=== PATIENT | male | born 1995 | race Caucasian/White ===

== ENCOUNTER 2019-10-18 13:30 | Emergency (ER) | payer MEDICAID, SELFPAY ==
[2019-10-18 13:48] VITALS: BP 175/104; PULSE 112; RESP 20; TEMP 36.8; O2SAT 98; BMI 44.9
--- NOTE | 2019-10-18 13:50 | XR_ITS ---
PROCEDURE: XR FOOT RT MIN 3V CLINICAL INDICATION: pain Right foot pain. No known injury. COMPARISON: No exams were available for comparison FINDINGS: No fracture or dislocation. No lytic or blastic change. There is normal mineralization. There is a hallux valgus with mild/moderate osteoarthrosis of the 1st MTP articulation.. No erosive changes evident. 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 Other findings:Diffuse marked possible inflammatory soft tissue edema with swelling of the right foot. IMPRESSION: 1. Negative for fracture, bony destruction or dislocation. 2. Diffuse possible inflammatory soft tissue edema/swelling of the right foot. 3. Hallux valgus with mild/moderate 1st MTP osteoarthrosis. 4. 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 Dictated by: Reese Rouse 10/18/2019 15:03 Electronically signed by Reese Rouse in [place] 10/18/2019 15:03
--- NOTE | 2019-10-18 13:50 | XR_ITS ---
PROCEDURE: XR ANKLE RT MIN 3V CLINICAL INDICATION: pain Right ankle pain. No known recent injury. Patient wearing an ankle brace. COMPARISON: No exams were available for comparison FINDINGS: The visualized distal right tibia and fibula appears intact. There is demineralization of the distal portion of the fibula. Ankle mortise is anatomic. The talar dome and calcaneus is intact. 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 There is marked soft tissue edema with swelling of the ankle seen more prominently over the lateral malleolus. IMPRESSION: 1. Negative for acute fracture or dislocation. 2. Marked soft tissue edema/swelling of the right ankle seen more prominently over the lateral malleolus. 3. Talocalcaneal coalition. Dictated by: Reese Rouse 10/18/2019 14:58 Electronically signed by Reese Rouse in [place] 10/18/2019 14:58
--- NOTE | 2019-10-18 13:59 | HMH.EDUTC ---
[facility] [place] Disposition Clinical Impression: Ankle pain, right Qualifiers: Chronicity: unspecified Qualified Code(s): M25.571 - Pain in right ankle and joints of right foot Disposition: Home, Self-Care Condition on Discharge: Good Instructions: How To Perform RICE (Rest, Ice, Compress, Elevate), How to Apply an Ronn Wrap Additional Instructions: Continue to wear ankle brace and ronn wrap for support Follow up with Dr Cummings or Edie Durand in Podiatry Clinic for further evaluation and treatment Return if needed Over the counter Motrin and/or Tylenol as directed on package for pain Return if needed Straight to ER if any life threatening symptoms Call back to the [facility] for official reading of your xray Referrals: Emmett Davenport MD [Primary Care Provider] - Nury Cummings DPM [Staff Physician] - Edie Durand APRN [Nurse Practitioner] - Time of Disposition: 14:28 Medical Decision Making - Roger Inquiry Pt receiving controlled substance: No Roger was queried for this patient: No Vital Signs: 10/18/19 13:48 10/18/19 14:34 Temperature 98.3 F 98.3 F Temperature Source Oral Pulse Rate 112 H Pulse Rate [Right Brachial] 112 H Respiratory Rate 20 20 Blood Pressure 175/104 H Blood Pressure [Right Arm] 175/104 H Blood Pressure Mean [Right Arm] 127 Blood Pressure Source [Right Arm] Automatic Cuff Blood Pressure Position [Right Arm] Sitting 02 Sat by Pulse Oximetry 98 Oxygen Delivery Method Room Air Orders (Tests/Meds): ORDERS Category Date Time Status XR ankle RT min 3V Stat Exams 10/18/19 13:50 Taken XR foot RT min 3V Stat Exams 10/18/19 13:50 Taken - Radiology Data #1 Image(s): Ankle Image Reviewed: Yes I reviewed the patient's radiology image No acute fracture noted, patient in ankle brace and will have patient follow up with Dr Cummings for further evaluation #2 Image(s): Foot/Toes Image Reviewed: Yes I reviewed the patient's radiology image Preliminary Findings: No Fracture Seen No acute fracture noted, will place ronn wrap and have patient follow up with Dr Alejandro office for further evaluation [facility] [place] HPI - General Stated complaint: ankles Time Seen by Provider: 10/18/19 14:00 Mode of Arrival: Ambulatory Source of Information: Patient Limitations: No Limitations Description of Symptoms (Recalled from Triage Doc. by RN): PATIENT C/O PAIN TO RIGHT ANKLE X APPROX 1 MONTH HEENT Symptoms (Recalled from RN notes): No Resp Symptoms (Recalled from RN notes): No Skin Symptoms (Recalled from RN notes): No MS Symptoms (Recalled from RN notes): Yes Functional Status (Recalled from RN notes): WNL - History of Present Illness Provider Complaint: Patient state that he has been having pain in his right ankle area and the side of his foot for about a month States that he was recently moved to day shift and has been doing more walking and not sure if that is what is causing his foot to hurt or not States that pain shoots from the top of his foot around the outside and worse at times when he walks - Related Data Home Medications Medication Instructions Recorded Confirmed No Known Home Medications 10/18/19 10/18/19 Allergies Allergy/AdvReac Type Severity Reaction Status Date / Time No Known Allergies Allergy Verified 10/18/19 13:56 - Worker's Comp Is this a Worker's Comp case?: No [facility] History - Hepatitis A Screen Drug use history?: No High risk sexual behaviors?: No History of sexually transmitted infection?: No Currently employed?: No Childcare worker?: No Do you have indoor plumbing?: Yes Do you have electricity?: Yes Attestation statement:: This patient has been screened for Hepatitis A risk factors. I have reviewed the patient's past medical history: Yes Laterality Cases: Bilateral: Tonsillectomy - Social History Alcohol Intake: never Occupational Status: other Housing: house ROS Obtained: Yes All systems reviewed & no additional complaints, Yes System
[2019-10-18 14:34] VITALS: BP 175/104; PULSE 112; RESP 20; TEMP 36.8; O2SAT 98
== END 2019-10-18 14:35 | disposition home or self-care (01) ==
PROVIDERS: Emergency Provider Nurse Practitioner; PCP Family Medicine
DX: M25.571 Pain in right ankle and joints of right foot (principal); Z90.09 Acquired absence of other part of head and neck
CPT/HCPCS: 73610; 73630; 99201

== ENCOUNTER 2023-02-27 23:10 | Emergency (ER) | payer OTHER, SELFPAY ==
[2023-02-27 23:12] VITALS: BP 170/105; PULSE 110; RESP 20; TEMP 37.8; O2SAT 78; BMI 47.4
[2023-02-27 23:30] VITALS: BP 135/95; PULSE 112; RESP 17; O2SAT 93
--- NOTE | 2023-02-27 23:33 | XR_ITS ---
PROCEDURE INFORMATION: Exam: XR Chest Exam date and time: 02/27/2023 11:34 PM Age: 28 years old Clinical indication: Shortness of breath; Additional info: SOA TECHNIQUE: Imaging protocol: Radiologic exam of the chest. Views: 1 view. COMPARISON: No relevant prior studies available. FINDINGS: Limitations: Evaluation is limited by lack of penetration. Lungs: Lungs are adequately inflated. Suggestion of airspace opacity within the lower lobe. Pleural spaces: Suggestion of left pleural effusion. No pneumothorax. Heart/Mediastinum: The cardiomediastinal silhouette appears enlarged. Bones/joints: No acute fracture. IMPRESSION: 1. Suggestion of left lower lobe airspace opacity and left pleural effusion. Recommend correlation with history/physical exam. 2. The cardiac silhouette appears enlarged. Recommend correlation history/physical exam.
[2023-02-27 23:35] VITALS: BMI 90.8
[2023-02-27 23:42] VITALS: BP 135/95; PULSE 107; RESP 20; O2SAT 92
--- NOTE | 2023-02-27 23:50 | HMH.EDGENADL ---
Discharge Plan Disposition Patient Disposition: Xfer Short-Term Hosp Chief Complaint: Shortness of Breath/Dyspnea Prescriptions Prescriptions: No Action No Known Home Medications Referrals Follow up/Referrals: Provider,Referral, MD [Primary Care Provider] - See instructions Clinical Impressions Clinical Impression: Acute respiratory failure with hypoxia and hypercapnia, Pneumonia, Pleural effusion, Asthma exacerbation, D-dimer, elevated, Obesity Discharge ED Provider: Franny Gould General Adult HPI General Chief complaint: Shortness of Breath/Dyspnea Stated complaint: SOA, Weakness Time Seen by Provider: 02/27/23 23:15 Mode of Arrival: Ambulatory Source of Information: Patient and Relative Limitations: No Limitations Description of Symptoms (Recalled from ER Triage Doc. by RN): Patient c/o SOA and congestion x2 weeks. History of Present Illness HPI narrative: This patient is a 28-year-old male with a history of morbid obesity and childhood asthma presented to the emergency department for evaluation with concern for 2 weeks of cough, congestion, and difficulty breathing. He also states that it feels like he has pulled a muscle in his upper back. Patient states that at work, he got to the point where he was seeing stars and almost passed out because he was so short of breath. He denies any true chest pain, abdominal pain, nausea, vomiting, changes to bowel movements, rashes, swelling, or other concerns. No history of blood clots or clotting disorders. No history of cardiopulmonary issues otherwise. Related Data Home Medications Medication Instructions Recorded Confirmed No Known Home Medications 10/18/19 02/28/23 Allergies Allergy/AdvReac Type Severity Reaction Status Date / Time No Known Allergies Allergy Verified 10/18/19 13:56 [facility] Disclaimer: The information contained in this section may have been updated after the patient was seen, as this information can be updated by other users. Social History Smoking Status: Never smoker second hand exposure: No alcohol intake: never current occupational status: other Travel in the last 8 weeks: None housing: house ROS Obtained: Yes All systems reviewed & no additional complaints except as documented Physical Exam General General appearance: alert, in distress and obese Head Head exam: atraumatic and normocephalic Eye Eye exam: Present normal appearance, PERRL and EOMI ENT ENT exam: Present normal exam, normal oropharynx, mucous membranes moist and normal external ear exam Neck Neck exam: Present normal inspection, full ROM and trachea midline; Absent tenderness Chest Chest inspection: Present normal inspection and symmetric chest wall rise; Absent tenderness Respiratory Respiratory exam: Present respiratory distress, accessory muscle use, prolonged expiratory phase and other (Conversational dyspnea with tachypnea and accessory muscle use. Exam limited to body habitus, but breath sounds diminished bilaterally. Oxygen saturation of 78% on room air upon arrival); Absent stridor Cardiovascular Cardiovascular exam: Present normal rhythm and tachycardia Abdominal Exam Abdominal exam: Present soft; Absent distention, tenderness or guarding Extremities Exam Extremities exam: Present normal inspection, full ROM and normal capillary refill; Absent tenderness or edema Back Exam Back exam: Present normal inspection and full ROM; Absent tenderness Neurological Exam Neurological exam: Present alert, oriented X3, CN II-XII intact and normal gait; Absent motor sensory deficit Psychiatric Psychiatric exam: Present normal affect and normal mood Skin Skin exam: Present warm and dry Medical Decision Making Medical Records Medical records reviewed: Yes I reviewed the patient's medical records. Roger Inquiry Pt receiving controlled substance: No Vital Signs: 02/27/23 23:
[2023-02-27 23:54] LABS: VBG Base Excess 4.8 mmol/L (-2.4-2.3); VBG HCO3 30.7 mmol/L (23-30); VBG Oxygen Saturation 94.2 % (50-70); VBG PCO2 59.8 mmol/L (35-51); VBG PH 7.33 mmol/L (7.31-7.41); VBG PO2 77.1 mmol/L (28-40); VBG Total CO2 32.6 mmol/L (23-27)
[2023-02-27 23:56] LABS: Basophils # 0.1 K/mm3 (0-0.2); Basophils % 0.6 % (0.1-2.0); Eosinophils # 0.2 K/mm3 (0.0-0.4); Eosinophils % 1.4 % (0.1-12.0); Hematocrit 49.4 % (42.0-52.0); Hemoglobin 15.2 g/dL (14.1-18.0); Lymphocytes # 1.8 K/mm3 (0.7-4.5); Lymphocytes % 11.5 % (10-50); Mean Corpuscular HGB Conc 30.7 g/dL (31.8-35.4); Mean Corpuscular Volume 87.9 fl (80-94); Mean Platelet Volume 9.2 fl (7.4-10.4); Monocytes # 1.9 K/mm3 (0.1-1.0); Monocytes % 12.2 % (1.7-9.3); Neutrophils # 11.3 K/mm3 (1.8-7.8); Neutrophils % 74.3 % (37.0-80.0); Platelet Count 220 K/mm3 (142-424); Red Blood Count 5.61 M/mm3 (4.60-6.20); White Blood Count 15.2 K/mm3 (4.8-10.8)
[2023-02-27 23:59] LABS: MANUAL DIFFERENTIAL MANUAL DIFFERENTIAL (MANUAL DIFF)
[2023-02-28] VITALS (31 sets, daily range): BP systolic 105–171; BP diastolic 41–113; PULSE 87–108; RESP 12–25; TEMP 37.1; O2SAT 91–99
[2023-02-28 00:04] LABS: Alanine Aminotransferase 40 U/L (12-78); Albumin Level 3.4 g/dl (3.5-5.0); Albumin/Globulin Ratio 0.9 (1.1-1.8); Alkaline Phosphatase 102 U/L (38-126); Aspartate Amino Transferase 47 U/L (17-59); Bilirubin,Total 0.6 mg/dl (0.2-1.3); Blood Urea Nitrogen 14 mg/dl (9-20); Calcium 7.9 mg/dl (8.4-10.2); Carbon Dioxide 39 mmol/L (22.0-30.0); Chloride 95 mmol/L (98-107); Creatinine Clearance Estimated 105 mL/min (50-200); Estimated Glomerular Filt Rate 100 ml/min (>60); GFR (African American) 121 ML/MIN (>60); Globulin 3.8 g/dL (1.3-3.2); Glucose 99 mg/dl (74-100); Lactic Acid 0.9 mmol/L (0.7-2.1); Sodium 136 mmol/L (136-145); Total Protein,Serum 7.2 g/dl (6.3-8.2)
[2023-02-28 00:08] LABS: D-Dimer 4.29 ug/mL (0.0-0.5)
[2023-02-28 00:13] LABS: Anisocytosis 1+; Eosinophils % 1 % (0-3); Hypochromasia 1+; Lymphocytes % 13 % (10-50); Monocytes % 9 % (2-9); Neutrophils % 77 % (42-76); Platelet Estimate Normal; Total Cells Counted 100
[2023-02-28 00:14] LABS: Ovalocytes 1+
[2023-02-28 00:17] LABS: Coronavirus 19, PCR Not Detected (NotDetected); Influenza A, PCR Not Detected (NotDetected); Influenza B, PCR Not Detected (NotDetected); Troponin I 0.02 ng/ml (0.00-0.034)
[2023-02-28 00:21] LABS: NT Pro Brain Natriuretic Pep. 1510 pg/mL (0-125)
[2023-02-28 00:22] LABS: Procalcitonin 0.235 ng/mL (0.0-2.0); T4 (Thyroxine) 7.6 ug/dl (5.53-11.0)
--- NOTE | 2023-02-28 00:26 | ECG_ITS ---
APPROVED REPORT Exam: Resting ECG HR:105 bpm ECG Measurements Heart Rate 105 AXES MO 152 P 82 QRSd 96 QRS 53 QT 333 T 71 QTc 394 Conclusion SINUS TACHYCARDIA LOW QRS VOLTAGE IN PRECORDIAL LEADS [QRS DEFLECTION < 1.0 mV IN CHEST LEADS] POSSIBLE RIGHT VENTRICULAR CONDUCTION DELAY [RSR (QR) IN V1/V2] ABNORMAL RHYTHM ECG UNCONFIRMED REPORT Electronically signed by : Bruce Jurado MD 02/28/2023 14:17:10
--- NOTE | 2023-02-28 00:33 | PC.NURSE ---
Smiley on phone with re transfer
[2023-02-28 00:36] LABS: Thyroid Stimulating Hormone 4.42 uIU/mL (0.465-4.68)
--- NOTE | 2023-02-28 00:36 | PC.NURSE ---
[facility] will call back as soon as someone is available.
--- NOTE | 2023-02-28 00:43 | PC.NURSE ---
Multiple attempts made to get the second set of blood cultures. Unable to attain second set. aware and is okay with us pulling from the IV. Seymour ANNE is pulling second set of cultures from the line.
--- NOTE | 2023-02-28 00:56 | PC.NURSE ---
spoke with whom states they are on high level divert. I spoke with Pasquale ROLDAN who is inputing the heparin drip orders.
--- NOTE | 2023-02-28 01:01 | PC.NURSE ---
o/p with [facility] at this time.
[2023-02-28 01:07] LABS: Activated Partial Thrombo Time 25.8 seconds (22.8-30.6); Prothrombin Time 12.8 seconds (10.1-12.5)
[2023-02-28 01:16] LABS: PTT Heparin (inpatient only) 25.4 Seconds (23.6-34.0)
--- NOTE | 2023-02-28 01:51 | PC.NURSE ---
I spoke with Yani at [facility]. She states that Yoselin, Parag, nor Tom are able to accommodate the transfer due to the need for a bariatric capable CT.
--- NOTE | 2023-02-28 01:58 | PC.NURSE ---
o/p with CB at this time.
--- NOTE | 2023-02-28 02:13 | PC.NURSE ---
o/p talking to at this time.
--- NOTE | 2023-02-28 02:36 | PC.NURSE ---
pc to patients mom, no answer, voice mail left for mom to call us back
--- NOTE | 2023-02-28 02:47 | PC.NURSE ---
spoke to mom and updated status, states understanding
--- NOTE | 2023-02-28 03:27 | PC.NURSE ---
patient looking for his wallet, unable to find it, attempted to contact grandmother who was in the room with patient earlier to see if she took it, unable to reach her by phone, patient updated
--- NOTE | 2023-02-28 03:30 | PC.NURSE ---
patient found wallet in his bed
--- NOTE | 2023-02-28 03:32 | PC.NURSE ---
[facility] notified of need to transport patient to [facility], crew that is up for transport is currently out on a call. We will let them know when they arrive here
--- NOTE | 2023-02-28 03:56 | PC.NURSE ---
EMS here for transport
--- NOTE | 2023-02-28 04:27 | PC.NURSE ---
Charge nurse spoke to mother to update her on patient status, patient is being prepared to be intubated at this time
--- NOTE | 2023-02-28 04:34 | PC.NURSE ---
PC to [facility] change in patient status, they will call us back once they speak to Claims Collector
--- NOTE | 2023-02-28 04:37 | PC.NURSE ---
vital signs changed to q 5 min
--- NOTE | 2023-02-28 05:03 | XR_ITS ---
PROCEDURE INFORMATION: Exam: XR Chest Exam date and time: 02/28/2023 5:02 AM Age: 28 years old Clinical indication: Device placement; Ett placement (vent status); Additional info: Tube confirmation TECHNIQUE: Imaging protocol: Radiologic exam of the chest. Views: 1 view. COMPARISON: CR XR CHEST PORTABLE 02/27/2023 11:34 PM FINDINGS: Tubes, catheters and devices: ET tube is 2.7 cm from the edie. Lungs: Bilateral airspace disease is noted. Pleural spaces: Unremarkable. No pleural effusion. No pneumothorax. Heart/Mediastinum: Unremarkable. No cardiomegaly. Bones/joints: Unremarkable. Soft tissues: Portions of the left chest are excluded from the examination. IMPRESSION: ET tube is 2.7 cm from the edie. Portions of the left chest are excluded from the examination. Bilateral airspace disease is noted.
--- NOTE | 2023-02-28 05:04 | PC.NURSE ---
Manuela at called Dr.Randell Ozuna has Accepted patient at this time.
--- NOTE | 2023-02-28 05:21 | PC.NURSE ---
TRACY Roy at , patient will be going to ICU 2A, charge nurse number to call report to. EMS is to take patient thru ER for CT scan
--- NOTE | 2023-02-28 06:37 | PC.NURSE ---
dose of succinylcholine and etomidate given @ 0435 iv was infiltrate
--- NOTE | 2023-02-28 06:39 | PC.NURSE ---
pt was intubated @ 0500 with 8 ETT @ 24 @ teeth
--- NOTE | 2023-02-28 08:50 | PC.NURSE ---
Upon return of patient transport to [facility] medications wasted and witnessed by JANIE and Birgit Huerta RN. 85ml fentanyl, and 40ml of Versed wasted and destroyed in proper containers.
== END 2023-02-28 06:51 | disposition short-term general hospital (02) ==
PROVIDERS: Emergency Provider Emergency Medicine
DX: J96.01 Acute respiratory failure with hypoxia (principal); J96.02 Acute respiratory failure with hypercapnia; R00.0 Tachycardia, unspecified; J18.9 Pneumonia, unspecified organism; J90 Pleural effusion, not elsewhere classified; J45.901 Unspecified asthma with (acute) exacerbation; R79.1 Abnormal coagulation profile; E66.01 Morbid (severe) obesity due to excess calories; Z68.45 Body mass index [BMI] 70 or greater, adult; R05.9 Cough, unspecified; M54.6 Pain in thoracic spine; R79.89 Other specified abnormal findings of blood chemistry
CPT/HCPCS: 31500; 71045; 80053; 82803; 83605; 83880; 84145; 84436; 84443; 84484; 85007; 85025; 85378; 85610; 85730; 87040; 87636; 93005; 96365; 96366; 96367; 96375; 99291; J0330; J0456; J0696; J2704

== ENCOUNTER 2023-06-06 16:03 | Emergency (ER) | payer OTHER, SELFPAY ==
--- NOTE | 2023-06-06 16:21 | XR_ITS ---
PROCEDURE INFORMATION: Exam: XR Right Ankle Exam date and time: 06/06/2023 4:20 PM Age: 28 years old Clinical indication: Pain; Ankle; Right TECHNIQUE: Imaging protocol: Radiologic exam of the right ankle. Views: 3 or more views. COMPARISON: CR XR ANKLE RT MIN 3V 10/18/2019 2:10 PM FINDINGS: Bones/joints: No fractures, dislocations, or bone lesions. Longitudinal arches may be flattened but this is better a value aided with weight-bearing images. Talocalcaneal coalition might be present. Bone hypertrophy of the dorsal distal talus ( talar beak ). Soft tissues: No soft tissue gas, radiopaque foreign bodies, or masses. IMPRESSION: 1. No acute findings in the right ankle. 2. Possible right hindfoot deformities that may indicate talocalcaneal coalition. This would be best evaluated with weight-bearing images or CT of the right foot.
[2023-06-06 16:50] VITALS: BP 174/109; PULSE 87; RESP 22; TEMP 37; O2SAT 96; BMI 53.9
--- NOTE | 2023-06-06 17:00 | ED_ITS ---
Discharge Plan Disposition Patient Disposition: Home, Self-Care Condition: Good Prescriptions Prescriptions: No Action amlodipine 10 mg tablet 10 mg PO DAILY Patient Comments: TAKE ONE (1) TABLET EVERY DAY BY ORAL ROUTE. pantoprazole 40 mg tablet,delayed release (DR/EC) 40 mg PO DAILY Patient Comments: TAKE ONE (1) TABLET EVERY DAY BY ORAL ROUTE. hydrochlorothiazide 12.5 mg capsule 12.5 mg PO DAILY Patient Comments: TAKE ONE (1) CAPSULE TWICE A DAY BY ORAL ROUTE. aspirin 81 mg Tablet,Chewable 81 mg PO DAILY metoprolol tartrate 25 mg tablet 25 mg PO DAILY Patient Comments: TAKE ONE (1) TABLET TWICE A DAY BY ORAL ROUTE. Referrals Follow up/Referrals: Jacobo Mckeon PA [Primary Care Provider] - See instructions Edie Durand APRN [Nurse Practitioner] - See instructions Nury Cummings DPM [Staff Physician] - See instructions (call office for appointment) Activity Restrictions/Add. Instructions Additional Instructions/Restrictions: Follow up with your Family Doctor to recheck your blood pressure as scheduled tomorrow Follow up with Podiatry for further evaluation and treatment of you ankle pain as discussed Straight to ER if any life threatening symptoms Clinical Impressions Clinical Impression: Pain in ankle Stand Alone Forms Stand Alone Forms: Work/School Release Instructions Patient Instructions: DI for Ankle Pain, How To Perform RICE (Rest, Ice, Compress, Elevate) Discharge ED Provider: Sofia Lira [facility] General Stated complaint: Right ankle pain Mode of Arrival: Ambulatory Source of Information: Patient Limitations: No Limitations Time Seen by Provider: 06/06/23 17:00 Description of Symptoms (Recalled from Triage Doc. by RN): PATIENT C/O RIGHT ANKLE PAIN. 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 BEING OFF FOR 2-3 MONTHS HEENT Symptoms (Recalled from RN notes): No Resp Symptoms (Recalled from RN notes): No Skin Symptoms (Recalled from RN notes): No MS Symptoms (Recalled from RN notes): Yes Functional Status (Recalled from RN notes): WNL History of Present Illness Provider Complaint: Patient states that he walks on the outside of his foot and he works at [employer] it had bothered him on and off for about a year but he was off work for several months and just went back last week and he has been walking more than he was and it started bothering him again Denies known injury Related Data Home Medications Medication Instructions Recorded Confirmed amlodipine 10 mg tablet 10 mg PO DAILY 06/06/23 06/06/23 aspirin 81 mg chewable tablet 81 mg PO DAILY 06/06/23 06/06/23 hydrochlorothiazide 12.5 mg capsule 12.5 mg PO DAILY 06/06/23 06/06/23 metoprolol tartrate 25 mg tablet 25 mg PO DAILY 06/06/23 06/06/23 pantoprazole 40 mg tablet,delayed 40 mg PO DAILY 06/06/23 06/06/23 release Allergies Allergy/AdvReac Type Severity Reaction Status Date / Time No Known Allergies Allergy Verified 10/18/19 13:56 Worker's Comp Is this a Worker's Comp case?: No [facility] Disclaimer: The information contained in this section may have been updated after the patient was seen, as this information can be updated by other users. Social History Smoking Status: Never smoker second hand exposure: No alcohol intake: never current occupational status: other Travel in the last 8 weeks: None housing: house ROS Obtained: Yes All systems reviewed & no additional complaints except as documented and Yes Systems reviewed as appropriate & no additional complaints except as documented Constitutional Constitutional: Reports system reviewed and no additional complaints, except as documented and Reports as per HPI Cardiovascular Cardiovascular: Reports system reviewed and no additional complaints, except as documented and Reports as per HPI Respiratory Respiratory: Reports system reviewed and no additional complaints, except as documented and Reports as per HPI Gastrointestinal Gastrointestingal: Reports system reviewed and no additional complaints, except as documented and as per HPI Musculoskeletal Musculoskeletal: Reports system reviewed and no additional complaints, except as documented and Reports as per HPI Comments: Pain in right ankle Physical Exam General General appearance: alert and in no apparent distress ENT ENT exam: Present mucous membranes moist Respiratory Respiratory exam: Present normal lung sounds bilaterally; Absent respiratory distress or wheezes Cardiovascular Cardiovascular exam: Present regular rate, normal rhythm and normal heart sounds Expanded Lower Extremity Exam Right: Top foot image: 2 1. reports pain and tenderness, denies known injury pain worse with walking Gait: observed and limited by pain Neurological Exam Neurological exam: Present alert, oriented X3 and normal gait Medical Decision Making Roger Inquiry Pt receiving controlled substance: No Roger was queried for this patient: No Vital Signs: 06/06/23 16:50 Temperature 98.6 F Temperature Source Oral Pulse Rate [Right] 87 Respiratory Rate 22 02 Sat by Pulse Oximetry 96 Oxygen Delivery Method Room Air Orders (Tests/Meds): ORDERS Category Date Time Status XR ankle RT min 3V Stat Exams 06/06/23 16:21 Taken Radiology Data #1: Image(s): Ankle Image Reviewed: Yes I have reviewed radiologist's interpretation IMPRESSION: 1. No acute findings in the right ankle. 2. Possible right hindfoot deformities that may indicate talocalcaneal coalition. This would be best evaluated with weight-bearing images or CT of the right foot.
[2023-06-06 17:10] VITALS: BP 174/109; PULSE 87; RESP 22; TEMP 37; O2SAT 96
== END 2023-06-06 17:19 | disposition home or self-care (01) ==
PROVIDERS: Emergency Provider Nurse Practitioner; PCP Student in an Organized Health Care Education/Training Program
DX: M25.571 Pain in right ankle and joints of right foot (principal)
CPT/HCPCS: 73610; 99203; 99212; G0463

== ENCOUNTER 2023-12-24 12:51 | Emergency (ER) | payer OTHER, SELFPAY ==
[2023-12-24 13:06] VITALS: BP 158/82; PULSE 64; RESP 16; TEMP 36.8; O2SAT 98; BMI 52.9
--- NOTE | 2023-12-24 13:08 | ED_ITS ---
Discharge Plan Disposition Patient Disposition: Home, Self-Care Condition: Good Prescriptions Prescriptions: New amoxicillin-pot clavulanate 875-125 mg Tablet 1 tab PO Q12H Qty: 20 0RF No Action amlodipine 10 mg tablet 10 mg PO DAILY Patient Comments: TAKE ONE (1) TABLET EVERY DAY BY ORAL ROUTE. pantoprazole 40 mg tablet,delayed release (DR/EC) 40 mg PO DAILY Patient Comments: TAKE ONE (1) TABLET EVERY DAY BY ORAL ROUTE. hydrochlorothiazide 12.5 mg capsule 12.5 mg PO DAILY Patient Comments: TAKE ONE (1) CAPSULE TWICE A DAY BY ORAL ROUTE. aspirin 81 mg Tablet,Chewable 81 mg PO DAILY metoprolol tartrate 25 mg tablet 25 mg PO DAILY Patient Comments: TAKE ONE (1) TABLET TWICE A DAY BY ORAL ROUTE. Referrals Follow up/Referrals: Jacobo Mckeon PA [Primary Care Provider] - See instructions Activity Restrictions/Add. Instructions Additional Instructions/Restrictions: Over the Counter Tylenol may help with pain Use dental balls as you was instructed in the [facility] Take oral antibiotics to clear infection in the tooth Follow up with your Dentist as scheduled Return if needed Straight to ER if any life threatening symptoms Clinical Impressions Clinical Impression: Dental infection Instructions Patient Instructions: DI for Tooth Abscess, Tooth Abscess Print Language Print Language: Uzbek Discharge ED Provider: Sofia Lira [facility] HPI General Stated complaint: tooth pain Mode of Arrival: Ambulatory Source of Information: Patient Limitations: No Limitations Time Seen by Provider: 12/24/23 13:10 Description of Symptoms (Recalled from Triage Doc. by RN): Patient reports tooth pain on the bottom right. HEENT Symptoms (Recalled from RN notes): Yes Resp Symptoms (Recalled from RN notes): No Skin Symptoms (Recalled from RN notes): No MS Symptoms (Recalled from RN notes): No Functional Status (Recalled from RN notes): wnl History of Present Illness Provider Complaint: Patient states for the last three weeks he has been having pain in tooth on his right lower bottom states he has tried several over the counter remedies to help with the pain and swelling but nothing has worked States he called a dentist and made appointment but they couldnt get him in for a few weeks so he came in to get something until they can see him Related Data Home Medications ?Medication ?Instructions ?Recorded ?Confirmed amlodipine 10 mg tablet 10 mg PO DAILY 06/06/23 06/06/23 aspirin 81 mg chewable tablet 81 mg PO DAILY 06/06/23 06/06/23 hydrochlorothiazide 12.5 mg capsule 12.5 mg PO DAILY 06/06/23 06/06/23 metoprolol tartrate 25 mg tablet 25 mg PO DAILY 06/06/23 06/06/23 pantoprazole 40 mg tablet,delayed 40 mg PO DAILY 06/06/23 06/06/23 release Previous Rx's ?Medication ?Instructions ?Recorded amoxicillin 875 mg-potassium 1 tab PO Q12H #20 tabs 12/24/23 clavulanate 125 mg tablet Allergies Allergy/AdvReac Type Severity Reaction Status Date / Time No Known Allergies Allergy Verified 10/18/19 13:56 Worker's Comp Is this a Worker's Comp case?: No [facility] Disclaimer: The information contained in this section may have been updated after the patient was seen, as this information can be updated by other users. Social History Smoking Status: Never smoker second hand exposure: No alcohol intake: never current occupational status: other Travel in the last 8 weeks: None housing: house ROS Obtained: Yes All systems reviewed & no additional complaints except as documented and Yes Systems reviewed as appropriate & no additional complaints except as documented Constitutional Constitutional: Reports system reviewed and no additional complaints, except as documented and Reports as per HPI ENT Ears, Nose, Mouth, and Throat: Reports system reviewed and no additional complaints, except as documented, Reports as per HPI and Reports dental pain Cardiovascular Cardiovascular: Reports system reviewed and no additional complaints, except as documented and Reports as per HPI Respiratory Respiratory: Reports system reviewed and no additional complaints, except as doc umented and Reports as per HPI Gastrointestinal Gastrointestingal: Reports system reviewed and no additional complaints, except as documented and as per HPI Physical Exam General General appearance: alert and in no apparent distress ENT ENT exam: Present mucous membranes moist Expanded ENT Exam Teeth exam: Present dental caries, dental tenderness # and gingival swelling (redness and swelling to right lower gumline) Respiratory Respiratory exam: Present normal lung sounds bilaterally; Absent respiratory distress or wheezes Cardiovascular Cardiovascular exam: Present regular rate, normal rhythm and normal heart sounds Neurological Exam Neurological exam: Present alert, oriented X3 and normal gait Medical Decision Making Medical Records Screening: Per USPSTF and CDC recommendations, given the prevalence of disease in our region, it is our hospital?s policy to screen for HIV and viral Hepatitis for all patients aged 18 and over and those with ongoing risk factors. Roger Inquiry Pt receiving controlled substance: No Roger was queried for this patient: No Vital Signs: 12/24/23 13:06 Temperature 98.3 F Temperature Source Oral Pulse Rate [Radial] 64 Respiratory Rate 16 Blood Pressure [Right Arm] 158/82 H Blood Pressure Mean [Right Arm] 107 Blood Pressure Source [Right Arm] Automatic Cuff Blood Pressure Position [Right Arm] Sitting 02 Sat by Pulse Oximetry 98 Oxygen Delivery Method Room Air
[2023-12-24] MEDS: TETRACAINE/BENZOCAINE/BUTAMBEN 56 GM SPRAY TP (13:19)
[2023-12-24] MEDS: LIDOCAINE 2% VISCOUS SOL 15ML UDC 15 ML PO (13:19)
[2023-12-24 13:25] VITALS: BP 158/82; PULSE 64; RESP 16; TEMP 36.8; O2SAT 98
== END 2023-12-24 13:25 | disposition home or self-care (01) ==
PROVIDERS: Emergency Provider Nurse Practitioner; PCP Student in an Organized Health Care Education/Training Program
DX: K04.7 Periapical abscess without sinus (principal)
CPT/HCPCS: 99212; G0381